=== PATIENT | male | born 1975 | race Caucasian/White ===

== ENCOUNTER 2018-03-30 16:31 | Emergency (ER) | payer SELFPAY ==
--- NOTE | 2018-03-30 17:15 | RAD ---
TWO VIEWS CHEST: 03/30/18 COMPARISON: 03/01/18. HISTORY: Pain. FINDINGS: Normal cardiac silhouette. The lungs and pleural spaces are clear. No pneumothorax. No osseous abnorm alities. IMPRESSION: No acute cardiopulmonary process. POS: [facility]
== END 2018-03-30 17:38 | disposition home or self-care (01) ==
LOC: ERS 16:31
DX: F41.9 Anxiety disorder, unspecified (principal); R07.89 Other chest pain; F17.210 Nicotine dependence, cigarettes, uncomplicated; Z79.899 Other long term (current) drug therapy
CPT/HCPCS: 71046; 93005